=== PATIENT | female | born 1995 | race African-American/Black ===

== ENCOUNTER 2017-03-27 09:42 | Emergency (ER) | payer OTHER ==
[~2017-03-27] VITALS: Ht 149.9 cm; Wt 53.8 kg
[2017-03-27] MEDS ORDERED: ALBUTEROL/IPRATROPIUM 2.5MG/0.5MG, 3 ML ONE (11:23)
[2017-03-27] MEDS ORDERED: ALBUTEROL/IPRATROPIUM 2.5MG/0.5MG, 3 ML NPPB SCH (11:30)
[2017-03-27 11:57] LABS: RAPID INFLUENZA A POSITIVE (Negative); RAPID INFLUENZA B Negative (Negative)
[2017-03-27] MEDS ORDERED: OSELTAMIVIR 75 MG CAPSULE PO ONE (12:30)
[2017-03-27 12:59] VITALS: BP 115/67
== END 2017-03-27 13:01 | disposition home or self-care (01) ==
LOC: ED 12:50
DX: J09.X2 Influenza due to identified novel influenza A virus with other respiratory manifestations (principal); J45.901 Unspecified asthma with (acute) exacerbation
CPT/HCPCS: 87400; 94640; 99284; J7620